=== PATIENT | male | born 1990 | race Caucasian/White ===

== ENCOUNTER 2018-02-14 19:12 | Emergency (ER) | payer OTHER ==
--- OUTSIDE RECORDS SUMMARY | 2018-02-14 19:15 | XMS REPORT ---
:1990 [facility] Address [address] [place] [address] Care Team Providers Name Role Phone Unavailable Unavailable Unavailable Problems This patient has no known problems. Allergies, Adverse Reactions, Alerts This patient has no known allergies or adverse reactions. Medications This patient has no known medications. Results Test Description Test Time Test Comments Text Results Atomic Results Result Comments MRI LUMBAR WO/W CLINICAL INDICATION: M51.26 Other intervertebral disc displacement, lumbar region low back and leg pain status post lifting injury. Surgery in 02/2017 OMODALITY: [employer] [place] 1.2 [place] Open MRI TECHNIQUE: Multiplanar multi sequence MRI examination of the lumbar spine was performed. IV contrast, 17 ml gadolinium contrast administered and post-contrast imaging performed.IMPRESSION:1. L5-S1 shows moderate disc degeneration with mild degenerative retrolisthesis of L5 on S1 there is a 4 mm posterior rightward lateralizing post discectomy disc bulge/protrusion into ventral epidural fat without mass effect on thecal sac or neural structures. Mild enhancing epidural fibrosis surrounds right S1 sleeve and is noted postoperative rightward laminotomy/laminectomy site no significant canal narrowing. No significant foraminal stenosis.2. Remainder described below.FINDINGS:COMPARISON: 12/05/2016General observations: Five non-rib bearing lumbar type vertebral bodies will be assumed.Conus tip located at T12-L1 and is normal appearing without intradural extramedullary abnormality.Moderate disc degeneration and spondylosis at L5-S1 level. Mild disc degeneration spondylosis at the L1-L2 level.No vertebral body collapse.No marrow infiltrative process.No paraspinal soft tissue mass. Postsurgical changes noted at L5-S1 in the dorsal soft tissues.FINDINGS AT SPECIFIC LEVELS:L5-S1: Slight retrolisthesis of L5 on S1 with a 4 mm posterior subtly rightward lateralizing post discectomy disc bulge/protrusion. This indents ventral thecal sac abutting right S1 root sleeve. Mild enhancing epidural fibrosis is seen. No mass effect on neural structures seen. Rightward laminotomy/laminectomy defect noted. Mild facetal arthrosis. Subarachnoid spaces widely patent. No significant foraminal stenosis.L4-L5: Unremarkable.L3-L4: Unremarkable.L2-L3: Unremarkable.L1-L2: 2 mm posterior disc osteophyte complex slightly indents ventral thecal sac. There is only minimal narrowing subarachnoid space and there is no foraminal stenosis. MRI LUMBAR WO CLINICAL INDICATION: M51.26 Other intervertebral disc displacement, lumbar region right leg radiculopathy.MODALITY: [employer] 0.3T [employer] II TECHNIQUE: Multiplanar multi sequence MRI examination of the lumbar spine was performed.IMPRESSION:1. At the L5-S1 level, there is a 6 mm right posterior lateral disc protrusion impinging the right S1 nerve roots within the narrowed right L5-S1 lateral recess without central stenosis or neural foraminal narrowing. Mild bilateral facet joint hypertrophy.2. 1 mm broad-based disc protrusions at the L1-2 and at the L4-5 levels without significant focal disc abnormality.3. Mild desiccation at the L1-2 and at the L5-S1 disc spaces.FINDINGS:COMPARISON: noneOsseous structures: No fractures, spondylolisthesis, spondylolysis, nor any marrow replacement process.Surrounding soft tissues: No aneurysms, adenopathy, nor any focal masses.Spinal cord: Spinal cord conus at the appropriate L1 level. Distal cord and conus are normal.Hydration: Mild desiccation at the L1-2 and at the L5-S1 disc spaces.FINDINGS AT SPECIFIC LEVELS:L5-S1: 6 mm right posterior lateral disc protrusion impinging the right S1 nerve roots within the narrowed right L5-S1 lateral recess without central stenosis or neural foraminal narrowing. Mild bilateral facet joint hypertrophy.L4-L5: 1 mm broad-based disc protrusion effaces ventral thecal sac.L3-L4: Normal.L2-L3: Normal.L1-L2: 1 mm broad-based disc protrusion effaces ventral thecal sac.
--- OUTSIDE RECORDS SUMMARY | 2018-02-14 19:15 | XMS REPORT ---
:1990 Author Organization [employer] Care Team Providers Name Role Phone Jazmine Grajeda Provider Role Unavailable Allergies, Adverse Reactions, Alerts Substance Reaction Event Type N.K.D.A. Info Not Available Non Drug Allergy Problems Problem Type Condition Code Onset Dates Condition Status Assessment Subcutaneous mass of head R22.0 Active Problem Environmental allergies Z91.09 Active Medications Medication Code Code Instructions Start End Date Status Dosage System Date Flonase [facility] [id number] 2 sprays per September 12, Active as directed nostril twice a 2017 day Results No Known Results Summary Purpose eClinicalWorks Submission
--- OUTSIDE RECORDS SUMMARY | 2018-02-14 19:15 | XMS REPORT | Continuity of Care Document ---
:1990 Author Organization Interface Problems Problem Status Onset Classification Date Comments Source Date Reported DISPLACEMENT OF Active [facility] LUMBAR DISC 7 [place] Acid reflux Active Problem 03/03/2017 Ortho and Spine Medications Medication Details Route Status Patient Ordering Order Source Instructions Provider Date Acetaminophen 1 tab, Route: No Longer Ortho 325 MG / PO, Drug Active 017 and Hydrocodone Form: TAB, Spine Bitartrate 10 MG Dosing Weight Oral Tablet 80, kg, Q4H, PRN Pain Score 4-6, Start date: 02/28/17 9:28:00 SHEARER OPERATOR, Duration: 30 day, Stop date: 03/30/17 9:27:00 CSTNotes: Do not exceed 4gm/day of acetaminophen . (Same as: [place] 325/10) Lactated Ringers 1,000 mL, No Longer Ortho IV 1,000 mL Rate: TKO, Active 017 and Route: IV, Spine Dosing Weight 80 kg, Total Volume: 1,000, Start date: 02/28/17 6:56:00 SHEARER OPERATOR, Duration: 30 day, Stop date: 03/30/17 6:55:00 SHEARER OPERATOR, 1.99, m2 Ancef + sterile 2 gm, Route: Inactive Ortho water 20 mL IVP, ONCE, 017 and Dosing Weight Spine 80, kg, Start date: 02/28/17 6:12:00 SHEARER OPERATOR, Stop date: 02/28/17 6:12:00 SHEARER OPERATOR, Surgical Prophylaxis Only; For patients Notes: (Same As: Ancef, Kefzol) MEDICATION WASTE Product Size: 1000 mg Product Wasted: ___ mg Allergies, Adverse Reactions, Alerts Substance Category Reaction Severity Reaction Status Date Comments Source type Reported Immunizations Immunization Date Given Site Status Last Updated Comments Source Results Order Name Results Value Reference Date Interpretation Comments Source Range Spine Spine lumbar EXAM: XR LUMBAR SPINE 1 VIEW 02/28 - [facility] lumbar single view /2016 - [place] single view DX This report was dictated by a Anode Worker/ Fellow. I have personally reviewed the images as DX well as the Resident's interpretation and agree with the findings. DATE: 02/28/2017 7:00 AM SHEARER OPERATOR Read by: Yosef Best MD Resident: Yosef Best MD Dictated Date/time: 02/28/17 10:10 Electronically Signed by: Marilia Jackson MD 02/28/17 13:41 FINAL REPORT INDICATION: RIGHT L5-S1 LAMINECTOMY AND DISCECTOMY - INTRA-OP X-TABLE LAT L -SPINE COMPARISON: None. TECHNIQUE: Lateral radiograph of the lumbar spine FINDINGS: Limited evaluation of the lumbosacral spine with a single lateral radiograph. Assuming there are 5 lumbar type, nonrib bearing vertebral bodies, there is a retractor posterior to the spine at the level of L5-S1. Multilevel degenerative changes of the lumbar spine are seen, with intervertebral disc space narrowing, minimal anterior osteophytosis, and facet arthropathy most pronounced at L5-S1. No soft tissue abnormality is identified. IMPRESSION: 1. Limited evaluation of the lumbosacral spine. Assuming there are 5 lumbar type, nonrib bearing vertebral bodies, a retractor is posterior to the spine at the level of L5-S1. CHEM PANEL B/C Ratio 14 6 - 25 02/22 Ortho and Spine CHEM PANEL Globulin 3.1 g/dL 2.7 - 4.2 02/22 Ortho and Spine CHEM PANEL A/G Ratio 1.3 0.7 - 1.6 02/22 Ortho /2016 and Spine CHEM PANEL AGAP 10.0 meq/L 10.0 - 02/22 Ortho 20.0 /2016 and Spine CHEM PANEL eGFR 95 02/22 Result Comment: The eGFR is calculated using the CKD-EPI formula. In most young, healthy individuals the eGFR will be >90 mL/ min/1.73m2. The eGFR declines with age. An eGFR of 60-89 may be normal in Ortho mL/min/1.7 /2017 some populations, particularly the elderly, for whom the CKD-EPI formula has not been extensively validated. Use of the eGFR is not recommended in the following populations: and Spine 3m2 Individuals with unstable creatinine concentrations, including patients and those with serious co-morbid conditions. Patients with extremes in muscle mass or diet. The data above are obtained from the National Kidney Disease Education Program (NKDEP) which additionally recommends that when the eGFR is used in patients with extremes of body mass index for purposes of drug dosing, the eGFR should be multiplied by the estimated BMI. CHEM PANEL Alk Phos 76 unit/L 39 - 136 02/22 Ortho and Spine CHEM PANEL Bili Total 0.3 mg/dL 0.2 - 1.3 02/22 and Spine CHEM PANEL Glucose Lvl 83 mg/dL 70 - 99 02/22 and Spine CHEM PANEL Potassium 4.0 meq/L 3.5 - 5.1 02/22 Ortho Lvl /2016 and Spine CHEM PANEL Creatinine 1.06 mg/dL 0.50 - 02/22 Ortho Lvl 1.40 /2016 and Spine CHEM PANEL Sodium Lvl 137 meq/L 135 - 145 02/22 and Spine CHEM PANEL Chloride Lvl 103 meq/L 95 - 109 02/22 and Spine CHEM PANEL CO2 28 meq/L 24 - 32 02/22 and Spine CHEM PANEL BUN 15 mg/dL 7 - 22 02/22 Ortho and Spine CHEM PANEL ASPARTATE 19 unit/L 0 - 37 02/22 Ortho TRANSAMINASE and Spine CHEM PANEL Total 7.2 g/dL 6.4 - 8.4 02/22 [facility] Protein and Spine CHEM PANEL Calcium Lvl 8.9 mg/dL 8.5 - 10.5 02/22 Ortho and Spine CHEM PANEL ALANINE 23 unit/L 0 - 65 02/22 [facility] AMINOTRANSFE /2016 and Spine RASE CHEM PANEL Albumin Lvl 4.1 g/dL 3.5 - 5.0 02/22 Ortho and Spine HEMATOLOGY INR 0.96 0.85 - 02/22 Ortho 1.17 /2016 and Spine HEMATOLOGY PROTIME 12.8 s 12.0 - 02/22 Ortho 14.7 /2016 and Spine HEMATOLOGY aPTT 32.0 s 22.9 - 02/22 Ortho 35.8 /2017 and Spine HEMATOLOGY WBC 7.1 K/CMM 3.7 - 10.4 02/22 and Spine HEMATOLOGY MPV 9.5 fL 7.4 - 10.4 02/22 and Spine HEMATOLOGY Platelet 220 K/CMM 133 - 450 02/22 and Spine HEMATOLOGY MCV 96.0 fL 80.0 - 12 Ortho 94.0 /2017 and Spine HEMATOLOGY MCHC 33.7 g/dL 32.0 - 12/ Ortho 36.0 /2017 and Spine HEMATOLOGY MCH 32.4 pg 27.0 - 12/ Ortho 31.0 /2016 and Spine HEMATOLOGY RDW 12.9 % 11.5 - 12 Ortho 14.5 /2016 and Spine HEMATOLOGY Hgb 14.1 g/dL 14.0 - 02/22 Ortho 18.0 /2016 and Spine HEMATOLOGY RBC 4.35 M/CMM 4.70 - 12 Ortho 6.10 /2016 and Spine HEMATOLOGY Hct 41.8 % 42.0 - / Ortho 54.0 /2016 and Spine HEMATOLOGY Basophils # 0.1 K/CMM 0.0 - 0.2 02/22 Ortho and Spine HEMATOLOGY Segs 54.6 % 45.0 - 02/22 Ortho 75.0 /2016 and Spine HEMATOLOGY Monocytes # 0.6 K/CMM 0.0 - 0.8 02/22 Ortho and Spine HEMATOLOGY Lymphocytes 2.3 K/CMM 1.0 - 5.5 02/22 [facility] # /2016 and Spine HEMATOLOGY Eosinophils 0.3 K/CMM 0.0 - 0.5 02/22 Ortho /2016 and Spine HEMATOLOGY Eosinophils 3.6 % 0.0 - 4.0 02/22 Ortho and Spine HEMATOLOGY Lymphocytes 32.1 % 20.0 - / Ortho 40.0 /2017 and Spine HEMATOLOGY Monocytes 9.0 % 2.0 - 12.0 02/22 Ortho and Spine HEMATOLOGY Segs-Bands # 3.9 K/CMM 1.5 - 8.1 02/22 Ortho and Spine HEMATOLOGY Basophils 0.7 % 0.0 - 1.0 02/22 Ortho and Spine Vital Signs Vital Sign Value Date Comments Source Systolic (mm Hg) 135 02/28/2017 [facility] Diastolic (mm Hg) 86 02/28/2017 [facility] Respitory Rate 17 02/28/2017 [facility] Heart Rate 93 02/28/2017 [facility] Systolic (mm Hg) 133 02/28/2017 [facility] Diastolic (mm Hg) 92 02/28/2017 [facility] Heart Rate 89 02/28/2017 [facility] and Spine Respitory Rate 15 02/28/2017 [facility] Sp[facility] Systolic (mm Hg) 105 02/28/2017 [facility] Spine Diastolic (mm Hg) 68 02/28/2017 [facility] and Spine Respitory Rate 16 02/28/2017 Orth[facility] and Spine Heart Rate 74 02/28/2017 [facility] Spine Temperature Oral (F) 97.3 F 02/28/2017 Orth[facility] and Spine Weight 80 02/28/2017 Orth[facility] and Spine BMI Calculated 26.05 02/28/2017 Orth[facility] and Spine Temperature Oral (F) 98.5 F 02/22/2017 Ortho and Spine Height 175.26 cm 02/17/2017 Ortho and Spine Encounters Location Location Encounter Encounter Reason Attending ADM DC Status Source Details Type Number For Provider Date Date Visit [id number] Cali 02/28 03/01 [place] [facility] Procedures Procedure Code Date Perfomer Comments Source ORIF - Open [id number] Ortho and reduction and Spine internal fixation of fracture Procedure on [id number] abcess removal Ortho and mouth<sup>1</sup Spine >
--- OUTSIDE RECORDS SUMMARY | 2018-02-14 19:15 | XMS REPORT | Summary of Care ---
:1990 Author Organization [facility] Address [address] [place] [address]- Encounter HQ Nickolas_alana(FIN) [id number] Date(s): 02/28/17 - 02/28/17 [facility] [address] [place] [phone]- [phone] Discharge Disposition: Home or Self Care Attending Physician: Cali Azul MD Referring Physician: Cali Azul MD Vital Signs Most recent to oldest 1 2 3 [Reference Range]: Height 175.26 cm (02/17/17 1:06 PM) Temperature Oral [96.4-99.1 97.3 DegF 98.5 DegF DegF] (02/28/17 6:38 AM) (02/22/17 8:30 AM) Blood Pressure 135/86 mmHg 133/92 mmHg 105/68 mmHg [90-140/60-90 mmHg] (02/28/17 10:00 AM) (02/28/17 9:45 AM) (02/28/17 9:30 AM ) Respiratory Rate [14-20 17 BRMIN 15 BRMIN 16 BRMIN BRMIN] (02/28/17 10:00 AM) (02/28/17 9:45 AM) (02/28/17 9:30 AM) Peripheral Pulse Rate 93 bpm 89 bpm 74 bpm [60-100 bpm] (02/28/17 10:00 AM) (02/28/17 9:45 AM) (02/28/17 9:30 AM) Weight 80 kg (02/28/17 6:09 AM) Body Mass Index 26.05 m2 (02/28/17 6:09 AM) Problem List Condition Effective Dates Status Health Status Informant Acid reflux(Confirmed) Active Allergies, Adverse Reactions, Alerts Substance Reaction Severity Status NKDA Active Medications acetaminophen-hydrocodone 325 mg-10 mg oral tablet 1 tab, Route: PO, Drug Form: TAB, Dosing Weight 80, kg, Q4H, PRN Pain Score 4-6 , Start date: 02/28/17 9:28:00 PRINCIPAL PRODUCT MANAGER, Duration: 30 day, Stop date: 03/30/17 9:27: 00 PRINCIPAL PRODUCT MANAGER Notes: Do not exceed 4gm/day of acetaminophen. (Same as: [place] 325/10) Start Date: 02/28/17 Stop Date: 03/01/17 Status: Discontinuedacetaminophen-hydrocodone 325 mg-10 mg oral tablet 2 tab, Route: PO, Drug Form: TAB, Dosing Weight 80, kg, Q6H, PRN Pain Score 7-10 , Start date: 02/28/17 9:28:00 PRINCIPAL PRODUCT MANAGER, Duration: 30 day, Stop date: 03/30/17 9:27: 00 PRINCIPAL PRODUCT MANAGER Notes: Do not exceed 4gm/day of acetaminophen. (Same as: [place] 325/10) Start Date: 02/28/17 Stop Date: 03/01/17 Status: DiscontinuedAncef + sterile water 20 mL 2 gm, Route: IVP, ONCE, Dosing Weight 80, kg, Start date: 02/28/17 6:12:00 PRINCIPAL PRODUCT MANAGER, Stop date: 02/28/17 6:12:00 PRINCIPAL PRODUCT MANAGER, Surgical Prophylaxis Only; For patients < 120 kg, ABX Indication: Surgical Prophylaxis Notes: (Same As: Brad Anglin) MEDICATION WASTE Product Size: 1000 mgProduct Wasted: ___ mg Start Date: 02/28/17 Stop Date: 02/28/17 Status: OrderedLactated Ringers IV 1,000 mL 1,000 mL, Rate: TKO, Route: IV, Dosing Weight 80 kg, Total Volume: 1,000, Start date: 02/28/17 6:56:00 PRINCIPAL PRODUCT MANAGER, Duration: 30 day, Stop date: 03/30/17 6:55:00 PRINCIPAL PRODUCT MANAGER, 1.99, m2 Start Date: 02/28/17 Stop Date: 03/01/17 Status: Discontinued Results ELECTROLYTES Most recent to oldest [Reference Range]: 1 Sodium Lvl [135-145 mEq/L] 137 mEq/L (02/22/17 8:40 AM) Potassium Lvl [3.5-5.1 mEq/L] 4.0 mEq/L (02/22/17 8:40 AM) Chloride Lvl [95-109 mEq/L] 103 mEq/L (02/22/17 8:40 AM) CO2 [24-32 mEq/L] 28 mEq/L (02/22/17 8:40 AM) AGAP [10.0-20.0 mEq/L] 10.0 mEq/L (02/22/17 8:40 AM) CHEM PANEL Most recent to oldest [Reference Range]: 1 Creatinine Lvl [0.50-1.40 mg/dL] 1.06 mg/dL (02/22/17 8:40 AM) eGFR 95 mL/min/1.73m2 1 *NA* (02/22/17 8:40 AM) BUN [7-22 mg/dL] 15 mg/dL (02/22/17 8:40 AM) B/C Ratio [6-25] 14 (02/22/17 8:40 AM) Glucose Lvl [70-99 mg/dL] 83 mg/dL (02/22/17 8:40 AM) Total Protein [6.4-8.4 g/dL] 7.2 g/dL (02/22/17 8:40 AM) Albumin Lvl [3.5-5.0 g/dL] 4.1 g/dL (02/22/17 8:40 AM) Globulin [2.7-4.2 g/dL] 3.1 g/dL (02/22/17 8:40 AM) A/G Ratio [0.7-1.6] 1.3 (02/22/17 8:40 AM) Calcium Lvl [8.5-10.5 mg/dL] 8.9 mg/dL (02/22/17 8:40 AM) ALT [0-65 unit/L] 23 unit/L (02/22/17 8:40 AM) AST [0-37 unit/L] 19 unit/L (02/22/17 8:40 AM) Alk Phos [39-136 unit/L] 76 unit/L (02/22/17 8:40 AM) Bili Total [0.2-1.3 mg/dL] 0.3 mg/dL (02/22/17 8:40 AM) 1Result Comment: The eGFR is calculated using the CKD-EPI formula. In most young , healthy individualsthe eGFR will be >90 mL/min/1.73m2. The eGFR declines with age. An eGFR of 60-89 may be normal insome populations, particularly the elderly, for whom the CKD-EPI formula has not been extensively validated. Use of the eGFR is not recommended in the following populations: Individuals with unstable creatinine concentrations, including patients and those with serious co-morbid conditions. Patients with extremes in muscle mass or diet. The data above are obtained from the National Kidney Disease Education Program ( NKDEP) which additionally recommends that when the eGFR is used in patients with extremes of body mass index for purposesof drug dosing, the eGFR should be multiplied by the estimated BMI.HEMATOLOGY Most recent to oldest [Reference Range]: 1 WBC [3.7-10.4 K/CMM] 7.1 K/CMM (02/22/17 8:40 AM) RBC [4.70-6.10 M/CMM] 4.35 M/CMM *LOW* (02/22/17 8:40 AM) Hgb [14.0-18.0 g/dL] 14.1 g/dL (02/22/17 8:40 AM) Hct [42.0-54.0 %] 41.8 % *LOW* (02/22/17 8:40 AM) MCV [80.0-94.0 fL] 96.0 fL *HI* (02/22/17 8:40 AM) MCH [27.0-31.0 pg] 32.4 pg *HI* (02/22/17 8:40 AM) MCHC [32.0-36.0 g/dL] 33.7 g/dL (02/22/17 8:40 AM) RDW [11.5-14.5 %] 12.9 % (02/22/17 8:40 AM) Platelet [133-450 K/CMM] 220 K/CMM (02/22/17 8:40 AM) MPV [7.4-10.4 fL] 9.5 fL (02/22/17 8:40 AM) Segs [45.0-75.0 %] 54.6 % (02/22/17 8:40 AM) Lymphocytes [20.0-40.0 %] 32.1 % (02/22/17 8:40 AM) Monocytes [2.0-12.0 %] 9.0 % (02/22/17 8:40 AM) Eosinophils [0.0-4.0 %] 3.6 % (02/22/17 8:40 AM) Basophils [0.0-1.0 %] 0.7 % (02/22/17 8:40 AM) Segs-Bands # [1.5-8.1 K/CMM] 3.9 K/CMM (02/22/17 8:40 AM) Lymphocytes # [1.0-5.5 K/CMM] 2.3 K/CMM (02/22/17 8:40 AM) Monocytes # [0.0-0.8 K/CMM] 0.6 K/CMM (02/22/17 8:40 AM) Eosinophils # [0.0-0.5 K/CMM] 0.3 K/CMM (02/22/17 8:40 AM) Basophils # [0.0-0.2 K/CMM] 0.1 K/CMM (02/22/17 8:40 AM) PT [12.0-14.7 seconds] 12.8 seconds (02/22/17 8:40 AM) INR [0.85-1.17] 0.96 (02/22/17 8:40 AM) PTT [22.9-35.8 seconds] 32.0 seconds (02/22/17 8:40 AM) Immunizations No data available for this section Procedures Procedure Date Related Diagnosis Body Site ORIF - Open reduction and internal fixation of fracture Procedure on mouth1 1abcess removal Social History Social History Type Response Exercise 1 Alcohol Current, Type Beer. Frequency: 1-2 times per week. 6 Drinks/Episode average.2 Smoking Status Current every day smoker; Type: Cigarettes; Lives with someone who smokes; Cigarette Smoking Last 365 Days No; Reg Smoking Cessation Counseling No; Tobacco use per day: 20; Number of years: 15; 1Denies sob on [id number] pk/wk Assessment and Plan No data available for this section
[2018-02-14 20:12] LABS: Absolute Monocytes 0.7 K/uL (0.1-1.3); Absolute Neutrophil 4.2 K/uL (1.8-8.0); Basophils % 0.8 % (0-1.3); Eosinophils % 3.6 % (0-4.4); Hematocrit 43.8 % (39.6-49.0); Lymphocytes % 43.4 % (15.3-44.8); MCV 98.2 fL (80-100); MPV 8.5 fL (7.6-11.3); Monocytes % 7.7 % (3.3-12.3); RBC Red Blood Cell Count 4.46 M/uL (4.33-5.43)
[2018-02-14 20:13] LABS: Protime INR 1.02
[2018-02-14 20:18] LABS: Barbiturates NEGATIVE (NEGATIVE); Benzodiazepines NEGATIVE (NEGATIVE); Cocaine POSITIVE (NEGATIVE); METHAMPHETAM NEGATIVE (NEGATIVE); Methadone NEGATIVE (NEGATIVE); Opiates NEGATIVE (NEGATIVE); Phencyclidine NEGATIVE (NEGATIVE); THC Cannibis POSITIVE (NEGATIVE)
[2018-02-14 20:31] LABS: Urine Blood NEGATIVE (NEG); Urine Glucose NEGATIVE (NEG); Urine Protein NEGATIVE (NEG); Urine pH 6.5 (5.0-7.0)
[2018-02-14 20:35] LABS: ALT/SGPT 34 U/L (12-78); AST/SGOT 23 U/L (15-37); Albumin 4.3 g/dL (3.4-5.0); Alkaline Phosphatase 103 U/L (45-117); BUN Blood Urea Nitrogen 8 mg/dL (7-18); Bicarbonate 22 mmol/L (21-32); Bilirubin Direct 0.2 mg/dL (0-0.2); Bilirubin Total 0.5 mg/dL (0.2-1.0); Glucose Level 92 mg/dL (74-106); Potassium 3.5 mmol/L (3.5-5.1); Protein, Total 8.1 g/dL (6.4-8.2); Sodium Level 142 mmol/L (136-145)
[2018-02-14] MEDS ORDERED: NICOTINE 21 MG/PAT TD ONE (20:50)
--- NOTE | 2018-02-15 07:01 | ER ---
Nurse's Notes [facility] Name: Gregg Espinal Age: 27 yrs Sex: Male : 1990 Arrival Date: 02/14/2018 Time: 19:16 Bed 23 Private MD: Diagnosis: Suicide attempt Presentation: 02/14 19:15 Presenting complaint: Patient states: that he was very depressed due to his fc leaving him. He took 4 tabs of Aspirin, 3-5 tabs of Tylenol and 15 Gabapentin 300 mg. All around 1800. Transition of care: patient was not received from another setting of care. Onset of symptoms was February 14, 2018 at 18:00. Risk Assessment: Do you want to hurt yourself or someone else? Patient reports desire/thoughts of hurting themselves or someone else. Provider notified. Initial Sepsis Screen: Does the patient meet any 2 criteria? No. Patient's initial sepsis screen is negative. Does the patient have a suspected source of infection? No. Patient's initial sepsis screen is negative. Care prior to arrival: None. 19:15 Method Of Arrival: EMS: [facility] 19:15 Acuity: OSWALDO 2 fc Historical: - Allergies: 19:57 No Known Allergies; fc - Home Meds: 19:57 None [Active]; fc - PMHx: 19:57 Back pain; fc - PSHx: 19:57 back surg; arm surg; fc - Immunization history:: Last tetanus immunization: unknown, Flu vaccine is not up to date. - Social history:: Smoking status: Patient uses tobacco products, smokes one pack cigarettes per day. Patient uses alcohol, on a daily basis. - Ebola Screening: : Patient negative for fever greater than or equal to 101.5 degrees Fahrenheit, and additional compatible Ebola Virus Disease symptoms Patient denies exposure to infectious person Patient denies travel to an Ebola-affected area in the 21 days before illness onset. Screenin:15 Abuse screen: Denies threats or abuse. Nutritional screening: On. Tuberculosis fc screening: No symptoms or risk factors identified. Fall Risk None identified. Assessment: 19:49 General: Appears in no apparent distress. Behavior is calm, cooperative. Pain: Denies ak1 pain. Neuro: Level of Consciousness is awake, alert, obeys commands, Oriented to person, place, time, situation, Drapery Hemmer Automatic are equal bilaterally Moves all extremities. Gait is unsteady, pt admits to ETOH. Speech is slurred, pt admits to ETOH. Facial symmetry appears normal. Cardiovascular: No deficits noted. Respiratory: No deficits noted. GI: No signs and/or symptoms were reported involving the gastrointestinal system. : No signs and/or symptoms were reported regarding the genitourinary system. EENT: No signs and/or symptoms were reported regarding the EENT system. Derm: No signs and/or symptoms reported regarding the dermatologic system. Musculoskeletal: No signs and/or symptoms reported regarding the musculoskeletal system. 19:57 Reassessment: Spoke with Lou at [place] [facility] who states that pt needs fc complete tox workup and monitoring for 4-6 hrs. 22:15 Reassessment: Patient appears in no apparent distress at this time. Patient is alert, ak1 oriented x 3, equal unlabored respirations, skin warm/dry/pink. pt resting, resp even and unlabored. will continue to monitor. 02/15 01:03 Reassessment: Patient appears in no apparent distress at this time. pt resting with ak1 eyes closed, resp even and unlabored. poison control updated on pt status and lab results. will continue to monitor. 02:10 Reassessment: Patient appears in no apparent distress at this time. No changes from ak1 previously documented assessment. Patient is alert, oriented x 3, equal unlabored respirations, skin warm/dry/pink. 03:20 Reassessment: Patient appears in no apparent distress at this time. No changes from ak1 previously documented assessment. 04:23 Reassessment: Patient appears in no apparent distress at this time. No changes from ak1 previously documented assessment. 05:15 Reassessment: Patient appears in no apparent distress at this time. No changes from ak1 previously documented assessment. pt resting with eyes closed, resp even and labored. will continue to monitor. sitter remains at bedside. 06:08 Reassessment: Patient appears in no apparent distress at this time. No changes from ak1 previously documented assessment. 06:43 Reassessment: nurse to nurse [facility].. ak1 06:49 Reassessment: nurse to nurse with Britney with [facility]. ak1 06:51 Reassessment: Poppy MOORE at [facility] given nurse to nurse. When able have Dr parker Granado call DR Ferguson [phone] to 06:53 Reassessment: Dr. Granado gave report to DR. Masters at [facility] [phone]. Sanam benitez to be contacted at [phone] for approval. Psych: 02/14 19:27 Subjective: Patient's mood is sad, hopeless, Delusions are denied, Hallucinations are fc denied Having thoughts of suicide. Plan for suicide is take a bunch of medications. Objective: Patient is defensive, Speech is normal, Affect is flat. Suicide Risk Assessment: Sad Person Scale: Sex of patient: Male: Score 1 point. Age of patient: Score 1 point if patient 15-34. Depression: Score 1 point if signs of depression are present. Previous Attempt: Score 1 point if patient has previously attempted suicide. Substance Abuse: Score 0 point if patient does not abuse alcohol or drugs. Rational Thinking: Score 1 point if patient is lacking rational thinking. Social Support: Score 1 point if social support is lacking and/or unavailable. Organized Plan: Score 1 point if patient had a plan in place. Relationship: Score 0 point if patient has a spouse or domestic partner. Chronic Sickness: Score 0 point if patient does not have a chronic illness, debilitating, or severe disorder. TOTAL POINTS: If total points are 7-10, the proposed clinical action is to hospitalize or commit. Implement suicide precautions. Patient uses daily. 19:45 Interventions: Removed personal items and placed in bag. Patient placed in hospital ak1 gown. Searched person for dangerous items. Urine collected and sent for urine drug test. Belonging list filled out. Safety Checks: Personal items have been removed. Door is open. Visitors are present. sitter at bedside. Commitment: Patient will be a voluntary commitment. pt smells of ETOH. Vital Signs: 19:15 BP 130 / 97; Pulse 72; Resp 18; Temp 97.8(O); Pulse Ox 98% on R/A; Weight 86.18 kg (R); fc Height 5 ft. 9 in. (175.26 cm) (R); Pain 0/10; 21:46 BP 126 / 94; Pulse 75; Resp 16; Pulse Ox 98% ; ds4 23:00 BP 119 / 88; Pulse 76; Resp 16; Pulse Ox 100% on R/A; rv 23:30 BP 139 / 114; Pulse 90; Resp 17; Pulse Ox 94% on R/A; rv 23:53 BP 119 / 80; Pulse 78; Resp 16; Temp 98.1; Pulse Ox 97% on R/A; Pain 0/10; ak1 02/15 01:15 BP 123 / 76; Pulse 71; Resp 19; Pulse Ox 96% on R/A; rv 02:00 BP 114 / 71; Pulse 69; Resp 18; Pulse Ox 94% on R/A; rv 04:00 BP 100 / 63; Pulse 63; Resp 16; Pulse Ox 100% on R/A; jw5 05:43 BP 112 / 69; Pulse 79; Resp 16; ak1 07:22 BP 103 / 86; Pulse 96; Resp 18; Pulse Ox 98% on R/A; gm 07:22 Temp 98.1(O); gm 02/14 19:15 Body Mass Index 28.06 (86.18 kg, 175.26 cm) fc ED Course: 02/14 19:15 Arm band placed on Patient placed in an exam room, on a stretcher. fc 19:15 Patient has correct armband on for positive identification. Placed in gown. Bed in low fc position. Call light in reach. 19:15 No provider procedures requiring assistance completed. fc 19:16 Patient arrived in ED. ak1 19:16 Angel Granado MD is Attending Physician. ps1 19:17 Kay Figueroa, RN is Primary Nurse. ak1 19:23 Triage completed. fc 19:45 Inserted saline lock: 20 gauge in right antecubital area, using aseptic technique. ds4 Blood collected. 20:00 Safety Checks: Personal items have been removed. The door is open or patient has been ak1 placed in a hallway bed/chair. A family member and/or friend is present and encouraged to stay. Sitter present at this time. 20:15 Safety Checks: Personal items have been removed. The door is open or patient has been ak1 placed in a hallway bed/chair. A family member and/or friend is present and encouraged to stay. Sitter present at this time. 20:30 Safety Checks: Personal items have been removed. The door is open or patient has been ak1 placed in a hallway bed/chair. A family member and/or friend is present and encouraged to stay. Sitter present at this time. 20:45 Safety Checks: Personal items have been removed. The door is open or patient has been ak1 placed in a hallway bed/chair. A family member and/or friend is present and encouraged to stay. Sitter present at this time. 21:00 Safety Checks: Personal items have been removed. The door is open or patient has been ak1 placed in a hallway bed/chair. A family member and/or friend is present and encouraged to stay. Sitter present at this time. 21:15 Safety Checks: Personal items have been removed. The door is open or patient has been ak1 placed in a hallway bed/chair. A family member and/or friend is present and encouraged to stay. Sitter present at this time. 21:30 Safety Checks: Personal items have been removed. The door is open or patient has been ak1 placed in a hallway bed/chair. A family member and/or friend is present and encouraged to stay. Sitter present at this time. 21:45 Safety Checks: Personal items have been removed. The door is open or patient has been ak1 placed in a hallway bed/chair. There are no family/friend visitors at this time Sitter present at this time. 21:45 Acetaminophen Sent. ds4 21:45 Basic Metabolic Panel Sent. ds4 21:45 Hepatic Function Sent. ds4 22:00 Safety Checks: Personal items have been removed. The door is open or patient has been ak1 placed in a hallway bed/chair. There are no family/friend visitors at this time Sitter present at this time. 22:15 Safety Checks: Personal items have been removed. The door is open or patient has been ak1 placed in a hallway bed/chair. A family member and/or friend is present and encouraged to stay. There are no family/friend visitors at this time Sitter present at this time. 22:30 Safety Checks: Personal items have been removed. The door is open or patient has been ak1 placed in a hallway bed/chair. A family member and/or friend is present and encouraged to stay. There are no family/friend visitors at this time Sitter present at this time. 22:45 Safety Checks: Personal items have been removed. The door is open or patient has been ak1 placed in a hallway bed/chair. There are no family/friend visitors at this time Sitter present at this time. 23:00 Safety Checks: Personal items have been removed. The door is open or patient has been ak1 placed in a hallway bed/chair. There are no family/friend visitors at this time Sitter present at this time. 23:15 Safety Checks: Personal items have been removed. The door is open or patient has been ak1 placed in a hallway bed/chair. There are no family/friend visitors at this time Sitter present at this time. 23:30 Safety Checks: Personal items have been removed. The door is open or patient has been ak1 placed in a hallway bed/chair. There are no family/friend visitors at this time Sitter present at this time. 23:45 Safety Checks: Personal items have been removed. The door is open or patient has been ak1 placed in a hallway bed/chair. There are no family/friend visitors at this time Sitter present at this time. 02/15 00:00 Safety Checks: Personal items have been removed. The door is open or patient has been ak1 placed in a hallway bed/chair. There are no family/friend visitors at this time Sitter present at this time. 00:15 Safety Checks: Personal items have been removed. The door is open or patient has been ak1 placed in a hallway bed/chair. There are no family/friend visitors at this time Sitter present at this time. 00:30 Safety Checks: Personal items have been removed. The door is open or patient has been ak1 placed in a hallway bed/chair. There are no family/friend visitors at this time Sitter present at this time. 00:45 Safety Checks: Personal items have been removed. The door is open or patient has been ak1 placed in a hallway bed/chair. There are no family/friend visitors at this time Sitter present at this time. 01:00 Safety Checks: Personal items have been removed. The door is open or patient has been ak1 placed in a hallway bed/chair. There are no family/friend visitors at this time Sitter present at this time. 01:15 Safety Checks: Personal items have been removed. The door is open or patient has been ak1 placed in a hallway bed/chair. There are no family/friend visitors at this time Sitter present at this time. 01:30 Safety Checks: Personal items have been removed. The door is open or patient has been ak1 placed in a hallway bed/chair. There are no family/friend visitors at this time Sitter present at this time. 01:30 Safety checks: Items removed: yes. Door open/sign placed on door: yes. Family/friend ds4 present: no. Sitter present: Yes. 01:45 Safety Checks: Personal items have been removed. The door is open or patient has been ak1 placed in a hallway bed/chair. There are no family/friend visitors at this time Sitter present at this time. 01:45 Safety checks: Items removed: yes. Door open/sign placed on door: yes. Family/friend ds4 present: no. Sitter present: Yes. 02:00 Safety Checks: Personal items have been removed. The door is open or patient has been ak1 placed in a hallway bed/chair. There are no family/friend visitors at this time Sitter present at this time. 02:00 Safety checks: Items removed: yes. Door open/sign placed on door: yes. Family/friend ds4 present: no. Sitter present: Yes. 02:15 Safety Checks: Personal items have been removed. The door is open or patient has been ak1 placed in a hallway bed/chair. There are no family/friend visitors at this time Sitter present at this time. 02:15 Safety checks: Items removed: yes. Door open/sign placed on door: yes. Family/friend jw5 present: no. Sitter present: Yes. 02:30 Safety Checks: Personal items have been removed. The door is open or patient has been ak1 placed in a hallway bed/chair. There are no family/friend visitors at this time Sitter present at this time. 02:30 Safety checks: Items removed: yes. Safety checks: Door open/sign placed on door: yes. jw5 Family/friend present: no. Sitter present: Yes. 02:45 Safety Checks: Personal items have been removed. The door is open or patient has been ak1 placed in a hallway bed/chair. There are no family/friend visitors at this time. 02:45 Safety checks: Items removed: yes. Door open/sign placed on door: yes. Family/friend jw5 present: no. Sitter present: Yes. 03:00 Safety Checks: Personal items have been removed. The door is open or patient has been ak1 placed in a hallway bed/chair. There are no family/friend visitors at this time Sitter present at this time. 03:00 Safety checks: Items removed: yes. Door open/sign placed on door: yes. Family/friend jw5 present: no. Sitter present: Yes. 03:15 Safety Checks: Personal items have been removed. The door is open or patient has been ak1 placed in a hallway bed/chair. There are no family/friend visitors at this time Sitter present at this time. 03:15 Safety checks: Items removed: yes. Door open/sign placed on door: yes. Family/friend jw5 present: no. Sitter present: Yes. 03:30 Safety checks: Items removed: yes. Door open/sign placed on door: yes. Family/friend jw5 present: no. Sitter present: Yes. 03:45 Safety checks: Items removed: yes. Door open/sign placed on door: yes. Family/friend jw5 present: no. Sitter present: Yes. 04:00 Safety checks: Items removed: yes. Door open/sign placed on door: yes. Family/friend jw5 present: no. Sitter present: Yes. 04:15 Safety checks: Items removed: yes. Door open/sign placed on door: yes. Family/friend jw5 present: no. Sitter present: Yes. 04:30 Safety checks: Items removed: yes. Door open/sign placed on door: yes. Family/friend jw5 present: no. Sitter present: Yes. 04:45 Safety checks: Items removed: yes. Door open/sign placed on door: yes. Family/friend jw5 present: no. Sitter present: Yes. 05:00 Safety checks: Items removed: yes. Door open/sign placed on door: yes. Family/friend jw5 present: no. Sitter present: Yes. 05:15 Safety checks: Items removed: yes. Door open/sign placed on door: yes. Family/friend jw5 present: no. Sitter present: Yes. 05:30 Safety checks: Items removed: yes. Door open/sign placed on door: yes. Family/friend jw5 present: no. Sitter present: Yes. 05:45 Safety checks: Items removed: yes. Door open/sign placed on door: yes. Family/friend jw5 present: no. Sitter present: Yes. 06:00 Safety checks: Items removed: yes. Door open/sign placed on door: yes. Family/friend jw5 present: no. Sitter present: Yes. 06:15 Safety checks: Items removed: yes. Door open/sign placed on door: yes. Family/friend jw5 present: no. Sitter present: Yes. 06:30 Safety checks: Items removed: yes. Door open/sign placed on door: yes. Family/friend jw5 present: no. Sitter present: Yes. 06:45 Safety checks: Items removed: yes. Door open/sign placed on door: yes. Family/friend jw5 present: no. Sitter present: Yes. 07:00 Safety checks: Items removed: yes. Door open/sign placed on door: yes. Family/friend gm present: no. Sitter present: Yes. 07:15 Safety checks: Items removed: yes. Door open/sign placed on door: yes. Family/friend gm present: no. Sitter present: Yes. 07:30 Safety checks: Items removed: yes. Door open/sign placed on door: yes. Family/friend gm present: no. Sitter present: Yes. 07:57 IV discontinued, intact, bleeding controlled, No redness/swelling at site. Pressure iw dressing applied. Administered Medications: 02/14 20:45 Drug: Nicoderm CQ 21 mg/24 hr 1 patches Route: Transdermal; Site: affected area; ak1 Outcome: 02/15 06:54 ER care complete, transfer ordered by . ps1 07:56 Transferred by ground EMS , to [facility]. Transfer form completed. X-rays sent w/ iw patient. 07:56 Condition: good 07:56 Instructed on the need for transfer, Demonstrated understanding of instructions. 07:57 Patient left the ED. iw Signatures: Letty Huizar RN RN Kiana Carrasco RN RN Edenilson Posey ds4 Kay Figueroa RN RN ak1 Angel Granado MD MD ps1 Tolu, Jodi jw5 Ruddy Andres RN RN Scarlett Patel Corrections: (The following items were deleted from the chart) 02/14 20:32 20:19 Safety Checks: Personal items have been removed. The door is open or patient has ak1 been placed in a hallway bed/chair. A family member and/or friend is present and encouraged to stay. Sitter present at this time. ak1 20:00 Safety Checks: Personal items have been removed. The door is open or patient has ak1 been placed in a hallway bed/chair. A family member and/or friend is present and encouraged to stay. Sitter present at this time. ak1 02/15 03:22 02:31 Safety Checks: Personal items have been removed. The door is open or patient has ak1 been placed in a hallway bed/chair. There are no family/friend visitors at this time ak1
--- NOTE | 2018-02-15 07:01 | EDPHYS ---
Physician Documentation [facility] Name: Gregg Espinal Age: 27 yrs Sex: Male : 1990 Arrival Date: 02/14/2018 Time: 19:16 Bed 23 Private MD: ED Physician Angel Granado HPI: 02/14 21:37 This 27 yrs old Male presents to ER via EMS with complaints of Psych Problem. ps1 21:37 patient is a . 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 Has problems at work and now at home. ps1 Additionally having financial problems. 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 Drank ETOH, Gabapentin x 15 300 mg, x 5 ASA, x 5 acetaminophen, and unknown amount of tramadol. Additionally reports THC abuse. . Historical: - Allergies: 19:57 No Known Allergies; fc - Home Meds: 19:57 None [Active]; fc - PMHx: 19:57 Back pain; fc - PSHx: 19:57 back surg; arm surg; fc - Immunization history:: Last tetanus immunization: unknown, Flu vaccine is not up to date. - Social history:: Smoking status: Patient uses tobacco products, smokes one pack cigarettes per day. Patient uses alcohol, on a daily basis. - Ebola Screening: : Patient negative for fever greater than or equal to 101.5 degrees Fahrenheit, and additional compatible Ebola Virus Disease symptoms Patient denies exposure to infectious person Patient denies travel to an Ebola-affected area in the 21 days before illness onset. ROS: 21:37 Constitutional: Negative for fever, chills, and weight loss, Eyes: Negative for injury, ps1 pain, redness, and discharge, Cardiovascular: Negative for chest pain, palpitations, and edema, Respiratory: Negative for shortness of breath, cough, wheezing, and pleuritic chest pain, Abdomen/GI: Negative for abdominal pain, nausea, vomiting, diarrhea, and constipation, MS/Extremity: Negative for injury and deformity, Neuro: Negative for headache, weakness, numbness, tingling, and seizure. 21:37 Psych: Positive for anxiety, depression, suicide gesture, suicidal ideation. Exam: 21:37 Constitutional: This is a well developed, well nourished patient who is awake, alert, ps1 and in no acute distress. Head/Face: Normocephalic, atraumatic. Chest/axilla: Normal chest wall appearance and motion. Nontender with no deformity. No lesions are appreciated. Cardiovascular: Regular rate and rhythm. No gallops, murmurs, or rubs. Normal PMI, no JVD. No pulse deficits. Respiratory: Lungs have equal breath sounds bilaterally, clear to auscultation and percussion. No rales, rhonchi or wheezes noted. No increased work of breathing, no retractions or nasal flaring. Back: No spinal tenderness. No costovertebral tenderness. Full range of motion. Skin: Warm, dry with normal turgor. Normal color with no rashes, no lesions, and no evidence of cellulitis. MS/ Extremity: Pulses equal, no cyanosis. Neurovascular intact. Full, normal range of motion. 21:37 Psych: Behavior/mood is depressed, Affect is calm, Oriented to person, place, time, Patient having thoughts of suicide. Plan for suicide is overdose Vital Signs: 19:15 BP 130 / 97; Pulse 72; Resp 18; Temp 97.8(O); Pulse Ox 98% on R/A; Weight 86.18 kg (R); fc Height 5 ft. 9 in. (175.26 cm) (R); Pain 0/10; 21:46 BP 126 / 94; Pulse 75; Resp 16; Pulse Ox 98% ; ds4 23:00 BP 119 / 88; Pulse 76; Resp 16; Pulse Ox 100% on R/A; rv 23:30 BP 139 / 114; Pulse 90; Resp 17; Pulse Ox 94% on R/A; rv 23:53 BP 119 / 80; Pulse 78; Resp 16; Temp 98.1; Pulse Ox 97% on R/A; Pain 0/10; ak1 02/15 01:15 BP 123 / 76; Pulse 71; Resp 19; Pulse Ox 96% on R/A; rv 02:00 BP 114 / 71; Pulse 69; Resp 18; Pulse Ox 94% on R/A; rv 04:00 BP 100 / 63; Pulse 63; Resp 16; Pulse Ox 100% on R/A; jw5 05:43 BP 112 / 69; Pulse 79; Resp 16; ak1 07:22 BP 103 / 86; Pulse 96; Resp 18; Pulse Ox 98% on R/A; gm 07:22 Temp 98.1(O); gm 02/14 19:15 Body Mass Index 28.06 (86.18 kg, 175.26 cm) fc MDM: 02/14 19:31 Patient medically screened. ps1 02/15 06:54 Data reviewed: vital signs, nurses notes, lab test result(s), EKG, and as a result, I ps1 will transfer patient to [facility] facility. ;. 02/14 19:22 Order name: Acetaminophen [facility] 02/14 19:22 Order name: Basic Metabolic Panel [facility] 02/14 19:22 Order name: CBC with Diff; Complete Time: 20:48 ak 02/14 19:22 Order name: ETOH Level; Complete Time: 20:48 ak 02/14 19:22 Order name: Hepatic Function [facility] 02/14 19:22 Order name: PT-INR; Complete Time: 20:48 ak 02/14 19:22 Order name: Ptt, Activated; Complete Time: 20:48 ak 02/14 19:22 Order name: Salicylate; Complete Time: 20:48 [facility] 02/14 19:22 Order name: Urine Drug Screen; Complete Time: 20:48 ak 02/14 19:23 Order name: Acetaminophen Level; Complete Time: 20:48 EDMS 02/14 19:23 Order name: Basic Metabolic Panel; Complete Time: 20:48 EDMS 02/14 19:23 Order name: Liver (Hepatic) Function; Complete Time: 20:48 EDMS 02/14 19:50 Order name: Urine Dipstick--Ancillary (enter results); Complete Time: 20:48 ms 02/15 04:43 Order name: Acetaminophen; Complete Time: 06:00 ps1 02/14 19:22 Order name: EKG; Complete Time: 19:23 ak 02/14 19:22 Order name: EKG - Nurse/Tech; Complete Time: 19:52 ak 02/14 19:22 Order name: IV Saline Lock; Complete Time: 19:52 ak 02/14 19:22 Order name: Labs collected and sent; Complete Time: 19:52 ak 02/14 19:22 Order name: Urine Dipstick-Ancillary (obtain specimen); Complete Time: 19:52 ak Administered Medications: 02/14 20:45 Drug: Nicoderm CQ 21 mg/24 hr 1 patches Route: Transdermal; Site: affected area; ak1 Disposition: 02/15/18 06:54 Transfer ordered to Psych Facility. Diagnosis is Suicide attempt. - Reason for transfer: Higher level of care. - Accepting physician is Dr. Bruce. - Condition is Stable. - Problem is new. - Symptoms have improved. Signatures: Dispatcher [employer] EDMS Letty Huizar RN RN Kiana Carrasco RN RN Kay Figueroa RN RN ak1 Angel Granado MD MD ps1 Corrections: (The following items were deleted from the chart) 02/15 07:57 06:54 02/15/2018 06:54 Transfer ordered to Psych Facility. Diagnosis is Suicide iw attempt. Reason for transfer: Higher level of care. Accepting physician is Dr. Bruce. Condition is Stable. Problem is new. Symptoms have improved. ps1
--- NOTE | 2018-02-15 07:16 | EKG ---
Test Date: 2018-02-14 Test Time: 19:31:46 Composing Machine Operator/Tender: FRANNY MEASUREMENT RESULTS: Intervals: Rate: 73 AK: 132 QRSD: 92 QT: 390 QTc: 429 [place]: P: 46 AK: 132 QRS: 76 T: 61 INTERPRETIVE STATEMENTS: Normal sinus rhythm Normal ECG Compared to ECG 01/07/2017 02:34:26 No significant changes Electronically Signed On 02-15-18 07:15:34 DOCK OPERATIONS SUPERVISOR by Maikel Moore
== END 2018-02-15 07:57 ==
LOC: ER 19:12
DX: T51.92XA Toxic effect of unspecified alcohol, intentional self-harm, initial encounter (principal); F17.210 Nicotine dependence, cigarettes, uncomplicated
CPT/HCPCS: 36415; 80048; 80076; 80307; 80320; 80329; 81003; 85025; 85610; 85730; 93005; 99285